=== PATIENT | male | born 1950 | race Caucasian/White ===

== ENCOUNTER → 2018-06-23 07:54 | Outpatient (CLI) | payer MEDICARE, SELFPAY ==
[2018-06-23 08:20] LABS: Bacteria Urine None Seen; RBC Urine None Seen (0-5/HPF); WBC Urine None Seen (0-5/HPF)
[2018-06-23 08:25] LABS: Hematocrit 39.8 % (41-53); Hemoglobin 13.6 g/dL (13.5-17.5); Mean Corpuscular HGB Conc 34.2 % (30-36); Mean Corpuscular Volume 87.7 fL (80-100); Platelet Count 205 X10^3/uL (150-400); Red Blood Cell Count 4.54 X10^6/uL (4.5-5.9); Red Cell Distribution Width 15.2 % (11.6-14.8); White Blood Cell Count 6.8 X10^3/uL (4.5-11.0)
[2018-06-23 09:07] LABS: Creatinine Urine Random 138.2 mg/dL
[2018-06-23 09:12] LABS: Alanine Aminotransferase 31 IU/L (21-72); Albumin 4.3 g/dL (3.5-5.0); Albumin Globulin Ratio 1.3 (1.0-2.8); Alkaline Phosphatase 77 U/L (38-126); Aspartate Aminotransferase 23 IU/L (17-59); BUN Creatinine Ratio 25.4 (6-22); Bilirubin Total 0.6 mg/dL (0.2-1.3); Blood Urea Nitrogen 33 mg/dL (9-20); Calcium 9.4 mg/dL (8.4-10.2); Carbon Dioxide 29 mmol/L (22-32); Chloride 103 mmol/L (98-107); Cholesterol 169 mg/dL (140-199); Estimated Glomerular Filt Rate 55.1 mL/min (>60); Globulin 3.2 g/dL (1.7-4.1); Glucose 108 mg/dL (80-110); HDL Cholesterol 45 mg/dL (40-60); HEMOLYSIS < 15 (0-50); LDL Cholesterol Calculated 99 mg/dL (<100); Potassium 4.8 mmol/L (3.4-5.1); Sodium 142 mmol/L (137-145); Total Protein 7.5 g/dL (6.3-8.2); Triglycerides 124 mg/dL (35-150); Uric Acid 10.9 mg/dL (3.5-8.5)
[2018-06-23 09:34] LABS: Prostate Specific Antigen 2.71 ng/mL (0.10-4.00)
[2018-06-23 10:16] LABS: Microalbumi Creatinin Ratio Ur 617.2 ug/mg CR (<30); Microalbumin Urine Random 85.3 mg/dL (0-1.6)
[2018-06-23 11:35] LABS: Appearance Urine UA CLEAR; Bilirubin Urine UA NEGATIVE (NEGATIVE); Color Urine UA YELLOW; Glucose Urine UA NEGATIVE (Negative); Ketones Urine UA NEGATIVE (NEGATIVE); Leukocyte Esterase Urine UA NEGATIVE (NEGATIVE); Nitrite Urine UA NEGATIVE (Negative); Occult Blood Urine UA NEGATIVE (Negative); Protein Urine UA 2+ (Negative)
[2018-06-23 11:46] LABS: Culture Indicated Urine Cult Not Indicated; Urine Comments Microscopic Normal
== END ==
PROVIDERS: PCP Student in an Organized Health Care Education/Training Program; Visit Provider Nurse Practitioner Family
DX: I10 Essential (primary) hypertension (principal); M10.9 Gout, unspecified; R97.20 Elevated prostate specific antigen [PSA]; Z68.33 Body mass index [BMI] 33.0-33.9, adult
CPT/HCPCS: 36415; 80053; 80061; 81001; 82043; 82570; 84153; 84550; 85027

== ENCOUNTER → 2018-10-27 12:41 | Outpatient (CLI) | payer MEDICARE, SELFPAY | PROVIDERS: PCP Student in an Organized Health Care Education/Training Program; Visit Provider Ophthalmology | DX: C83.11 Mantle cell lymphoma, lymph nodes of head, face, and neck (principal) ==

== ENCOUNTER → 2018-10-27 12:46 | Outpatient (CLI) | payer MEDICARE, SELFPAY ==
--- NOTE | 2018-10-27 | DI.MRI.S_ITS ---
PROCEDURE: MR HEAD/BRAIN WO/W CON INDICATIONS: Mantle cell lymphoma, lymph nodes of head, face, a TECHNIQUE: Noncontrast sagittal T1 spin echo, axial T2 fast spin echo, axial FLAIR, axial gradient echo, axial diffusion and ADC through the brain. Axial thin-slice axial T1 spin echo with fat saturation through the orbits. After the administration of contrast, axial and coronal thin-slice T1 spin echo with fat saturation through the orbits, axial T1 spin echo with fat saturation through the brain. COMPARISON: [facility], CT, CT CHEST ABD PEL W CON, 10/27/2018, 14:04. FINDINGS: Image quality: Excellent. Orbits: Globes demonstrate an unremarkable appearance. No significant abnormality of the lacrimal glands can be seen. The extraocular muscles are within normal limits. No masses or abnormal enhancement can be seen within the orbits. No significant paravertebral abnormalities are seen. CSF spaces: Ventricles are normal in size and shape. No extra-axial fluid collections. Basal cisterns are patent. Brain: No intracranial bleeds or mass effects. No abnormal intracranial enhancement. Mild to moderate age-appropriate brain parenchymal volume loss and chronic small vessel ischemic change can be seen. Diffusion weighted images show no acute ischemic insults. Mabry-white matter interface is intact. Brainstem is normal. Normal intravascular flow voids are present. Skull and face: Calvarial marrow signal is normal. Orbits appear normal. Sinuses: Sinuses and mastoids appear clear. IMPRESSION: No orbital abnormality can be seen. No masses or abnormal enhancement can be seen to suggest involvement of lymphoma of the orbits or intracranially. Dictated by: Diallo Lea M.D. on 10/27/2018 at 14:07 Approved by: Diallo Lea M.D. on 10/27/2018 at 14:10
--- NOTE | 2018-10-27 | DI.CT.S_ITS ---
PROCEDURE: CT CHEST ABD PEL W CON INDICATIONS: Mantle cell lymphoma, lymph nodes of head, face. TECHNIQUE: After the administration of oral and intravenous contrast, 5 mm thick sections acquired from the lung apices to the symphysis. 5 mm coronal and sagittal reformats were performed, with additional 7 mm coronal MIP reformats through the lungs. For radiation dose reduction, the following was used: automated exposure control, adjustment of mA and/or kV according to patient size. COMPARISON: CXR 08/17/2013. FINDINGS: Image quality: Excellent. CHEST: Lungs and pleura: No acute airspace opacities. Minimal atelectasis. A few pulmonary nodules measuring 3 mm or less, (7/139, 136). No pleural effusions or pneumothorax. Central and peripheral airways appear patent and normal in caliber. Mediastinum: Heart size is normal. Moderate coronary artery calcifications in the LAD. No pericardial effusion. Mildly prominent mediastinal and hilar lymph nodes. For example prevascular node measuring 1.7 x 1 cm, (2/19). Thoracic aorta and central pulmonary arteries are normal in size. Esophagus is normal in caliber. No hiatal hernia. Chest wall: Enlarged axillary lymph nodes. For example: -Superficial right axilla measuring 2.3 x 1.3 cm, (2/6). -Left axillary node measuring 2.7 x 1.9 cm, (2/8) There is a fatty hilum. Thyroid gland is unremarkable. ABDOMEN: Solid organs: Liver is normal in size and enhancement. Gallbladder is unremarkable. Biliary system is non dilated. Pancreas enhances normally. Spleen is is mildly enlarged measuring 3.3 cm, (3/42). No adrenal nodules. Kidneys demonstrate normal size and enhancement, without hydronephrosis. A few small simple appearing bilateral renal cysts. Peritoneum and bowel: Bowel loops demonstrate normal wall thickness and caliber. Normal appendix. No free fluid or air. Nodes and vessels: No enlarged retroperitoneal or mesenteric adenopathy. Prominent left inguinal node measuring 2.7 x 1.7 cm, (2/20). Small pelvic sidewall nodes. Miscellaneous: Surgical clips in the right groin. Asymmetric right abdominal wall musculature which may be related to prior procedure. PELVIS: Genitourinary: Bladder is unremarkable. Prostatomegaly. Miscellaneous: No inguinal hernias or adenopathy. Bones: No suspicious bony lesions. Moderate DDD of the thoracic and lumbar spine. A few vertebral bodies with mild anterior height loss. IMPRESSION: Enlarged bilateral axillary nodes. Prominent mediastinal nodes and left groin node. These findings are in keeping with the history of lymphoma. Comparison with prior imaging studies would be helpful to assess for change in disease status. Dictated by: Otf Michel M.D. on 10/27/2018 at 14:55 Approved by: Otf Michel M.D. on 10/27/2018 at 15:29
[2018-10-27 12:57] LABS: Bacteria Urine None Seen; RBC Urine None Seen (0-5/HPF); WBC Urine None Seen (0-5/HPF)
[2018-10-27 13:12] LABS: Appearance Urine UA SL CLOUDY; Bilirubin Urine UA NEGATIVE (NEGATIVE); Color Urine UA YELLOW; Glucose Urine UA NEGATIVE (Negative); Ketones Urine UA NEGATIVE (NEGATIVE); Leukocyte Esterase Urine UA NEGATIVE (NEGATIVE); Nitrite Urine UA NEGATIVE (Negative); Occult Blood Urine UA NEGATIVE (Negative); Protein Urine UA 3+ (Negative); Urobilinogen Urine UA 0.2 E.U./dL (0.2); pH Urine UA 5.5 (4.5-8.0)
[2018-10-27 13:21] LABS: BUN Creatinine Ratio 23.3 (6-22); Blood Urea Nitrogen 28 mg/dL (9-20); Calcium 9.4 mg/dL (8.4-10.2); Carbon Dioxide 30 mmol/L (22-32); Chloride 102 mmol/L (98-107); Estimated Glomerular Filt Rate > 60.0 mL/min (>60); Glucose 99 mg/dL (80-110); HEMOLYSIS < 15 (0-50); Potassium 4.6 mmol/L (3.4-5.1); Sodium 140 mmol/L (137-145)
[2018-10-27 14:13] LABS: Squamous Epithelial Cell Urine 1-5 /HPF (0-5/HPF)
== END ==
PROVIDERS: PCP Student in an Organized Health Care Education/Training Program; Visit Provider Nurse Practitioner Family
DX: C83.11 Mantle cell lymphoma, lymph nodes of head, face, and neck (principal); R80.9 Proteinuria, unspecified; I10 Essential (primary) hypertension; R79.89 Other specified abnormal findings of blood chemistry
CPT/HCPCS: 36415; 70553; 71260; 74177; 80048; 81001; A9579; Q9967

== ENCOUNTER 2019-01-31 06:28 | Day surgery (SDC) | payer MEDICARE, SELFPAY ==
[2019-01-31] VITALS (9 sets, daily range): BP systolic 149–170; BP diastolic 80–87; PULSE 69–958; RESP 10–16; TEMP 35.9–37.2; O2SAT 93–97; BMI 31.7
--- NOTE | 2019-01-31 | DI.RAD.S_ITS ---
PROCEDURE: XR CHEST 1V INDICATIONS: JEROME CATH TECHNIQUE: One view of the chest was acquired. COMPARISON: [facility], , CHEST 2 VIEW, 08/17/2013, 12:34. FINDINGS: Surgical changes and devices: Right chest port is present with the port positioned slightly more medial than expected. No acute kink is seen in the catheter. The tip projects at the upper SVC. Lungs and pleura: Lungs are clear. No pleural effusions or pneumothorax. Mediastinum: Mediastinal contours appear normal. Heart size is normal. Bones and chest wall: No suspicious bony lesions. Overlying soft tissues appear unremarkable. IMPRESSION: Right chest port as above. No pneumothorax. Dictated by: Trung Feldman M.D. on 01/31/2019 at 9:47 Approved by: Trung Feldman M.D. on 01/31/2019 at 9:49
--- NOTE | 2019-01-31 07:32 | PM.HP.1 ---
History of Present Illness History of Present Illness Date Patient Seen: 01/31/19 Time Patient Seen: 07:34 Chief complaint: [id number] Narrative: This is a 60-year-old male with mantle cell lymphoma referred from Oncology for a Port-A-Cath placement. His history began with a growth on his left lower eyelid which was resected and the pathology demonstrated mantle cell lymphoma. He has undergone CT as well as PET which demonstrates some axillary mediastinal lymphadenopathy. He reports feeling well today no acute pain fever unintentional weight loss. Medical history significant for hypertension hyperlipidemia. No prior heart attack stroke peripheral vascular disease diabetes pulmonary or renal insufficiency. 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 Brother No problems noted. Tobacco & Substance use: Smoking Status Former smoker alcohol intake current Meds Home Medications and Allergies Home Medications Medication Instructions Recorded Confirmed Type amlodipine 5 mg tablet 5 mg PO BID #60 tab 11/04/18 01/17/19 Rx amoxicillin 875 mg-potassium 1 tab PO BID #20 tab 01/17/19 01/17/19 Rx clavulanate 125 mg tablet lidocaine HCl 2 % mucosal solution 1 applictn MM TID PRN #15 ml 01/17/19 01/17/19 Rx Allergies Allergy/AdvReac Type Severity Reaction Status Date / Time indomethacin [INDOMETHACIN] Allergy Unknown GI UPSET Verified 01/17/19 10:10 Review of Systems Review of Systems Narrative: A complete review of systems is negative except as noted in the HPI Exam Narrative Exam Narrative: General-no acute distress, well nourished HEENT-moist mucous membranes, no scleral icterus Neck-supple, trachea midline Chest- non labored respirations, clear to auscultation bilaterally Cardiac-regular rate no peripheral edema Abdomen-soft, nontender, non distended Extremities-warm, well perfused Neurological-alert and oriented, no focal deficits Assessment & Plan Assessment and plan (1) Mantle cell lymphoma: Current visit: No Status: Acute Assessment & Plan narrative: This is a 60-year-old male with mantle cell lymphoma who presents today for Port-A-Cath placement. Plan is to place a right chest Port-A-Cath via a ultrasound-guided access of the internal jugular. We discussed the risks of the procedure including pneumothorax infection need for further procedure. His questions have been answered and he is in agreement with this plan.
[2019-01-31] MEDS: LACTATED RINGERS 1,000 ML 100 ML IV (07:53)
[2019-01-31] MEDS: CEFAZOLIN 2 GM/100 ML FROZ.PIGGY IV (08:02)
--- NOTE | 2019-01-31 08:24 | SUR.OPER ---
Supine on padded OR bed, head on gel donut, arms padded and tucked at sides, legs uncrossed, safety belt at thigh.
[2019-01-31] MEDS: HEPARIN 5,000 UNIT, SODIUM CHLORIDE 0.9% 50 ML IV (08:28)
[2019-01-31] MEDS: BUPIVACAINE 0.25% (PF) VIAL 30 ML INJ (08:28)
--- NOTE | 2019-01-31 09:03 | PM.OP.1 ---
Operative Date/Time/Diagnoses Date of procedure: 01/31/19 Time of procedure: 09:03 Pre-op diagnosis: mantle cell lymphoma Post-op diagnosis: same Procedure & Clinicians Procedure: Port A-Cath placement Same procedure as scheduled: Yes Indications: 68-year-old male mantle cell lymphoma presents for Port-A-Cath placement Surgeon: Chago Looney Click Yes if Unassisted: Yes Anesthesia Type: General Operative Notes Findings: Tip of the catheter lies within the SVC no evidence of pneumothorax Estimated Blood Loss (mL): 10 Procedure in detail: Patient was brought to the operating room placed supine on table. Bilateral lower extremity compressive devices were applied. General anesthesia was induced and he was intubated with an LMA. He was then prepped and draped in usual sterile fashion. Time-out was performed ensure the correct patient procedure necessary equipment within the operating room. He received 2 g of Ancef prior to incision. Under ultrasound guidance the right internal jugular vein was accessed under direct visualization. The guidewire was then threaded through the needle. Its placement was then confirmed using fluoroscopy. The dilator was then placed over the guidewire. The catheter was then inserted through the sheath. Placement was again confirmed with fluoroscopy. A subcutaneous pocket was made in the right chest wall. The tunneler device was used to move the catheter from the neck to the chest pocket. The port was attached after it was primed with heparined saline. The port was tested to ensure that it flushed easily and had good blood return. The port was then secured to the underlying fascia using interupted 0 Prolene suture. Hemostasis was achieved. The wound was irrigated with sterile saline. The subcutaneous tissues were reapproximated with the 3 0 Vicryl and then skin closed with 4-0 Monocryl. The skin was sealed with Dermabond. Patient tolerated procedure well. The sponge and instrument count at the end operation was correct. Patient emerged from general anesthesia was extubated and taken to the postoperative care unit in stable condition Complications: none Post-operative Condition: stable Disposition: same day surgery
--- NOTE | 2019-01-31 09:08 | SUR.PHASEI ---
Raffy ASTORGA. Denies pain/nausea.
--- NOTE | 2019-01-31 09:47 | SUR.PHASEI ---
Per Dr Feldman, chest X-ray negative for pneumothorax.
== END 2019-01-31 10:38 | disposition home or self-care (01) ==
PROVIDERS: PCP Nurse Practitioner Family; Visit Provider Surgery
PROC: (CPT 36561; principal; 2019-01-31 07:45)
DX: C83.10 Mantle cell lymphoma, unspecified site (principal); Z45.2 Encounter for adjustment and management of vascular access device; I10 Essential (primary) hypertension; E78.5 Hyperlipidemia, unspecified
CPT/HCPCS: 36561; 71045; 76000; C1788; J0690; J1644; J2704; J3010

== ENCOUNTER → 2019-02-06 15:06 | Outpatient (CLI) | payer MEDICARE, SELFPAY ==
--- NOTE | 2019-02-06 15:09 | DI.RAD.S_ITS ---
PROCEDURE: XR KNEE LT 3V INDICATIONS: pain, swelling, erythema, warmth, chills, r/o fx/joint effus TECHNIQUE: 3 views of the knee were acquired. COMPARISON: None. FINDINGS: Bones: No fractures or dislocations. No suspicious bony lesions. No osseous erosive changes or periosteal reaction identified. Patellar bone spurs are noted. Soft tissues: Large suprapatellar joint effusion. No suspicious soft tissue calcifications. Multiple surgical clips noted in the medial calf. IMPRESSION: Large, nonspecific, suprapatellar joint effusion. Septic joint cannot be excluded. Please correlate with clinical and laboratory data. Dictated by: Gemma Odell MD, PhD on 02/06/2019 at 15:53 Approved by: Gemma Odell MD, PhD on 02/06/2019 at 15:55
== END ==
PROVIDERS: Family Provider Nurse Practitioner Family; PCP Nurse Practitioner Family; Visit Provider Physician Assistant
DX: M71.10 Other infective bursitis, unspecified site (principal); M25.562 Pain in left knee; M25.462 Effusion, left knee; R68.83 Chills (without fever)
CPT/HCPCS: 73562

== ENCOUNTER → 2020-08-12 08:59 | Outpatient (CLI) | payer MEDICARE, MEDICAID, SELFPAY ==
--- NOTE | 2020-08-12 09:03 | DI.RAD.S_ITS ---
PROCEDURE: XR ANKLE LT MIN 3V INDICATIONS: CELLULITIS TECHNIQUE: 3 views of the ankle were acquired. COMPARISON: None. FINDINGS: Bones: ORIF of the distal fibula as well as medial malleolus are present. Healing fracture exostosis are present. Hardware is intact. Soft tissues: Soft tissue edema is noted overlying the distal aspect of the lower extremity. No soft tissue air. IMPRESSION: Soft tissue edema as above. This could represent infection or inflammation such as given history of cellulitis. Clinical correlation is recommended. No soft tissue air. Dictated by: Gillian Gallo M.D. on 08/12/2020 at 9:20 Approved by: Gillian Gallo M.D. on 08/12/2020 at 9:21
[2020-08-12 09:53] LABS: Add Manual Diff / Slide Review NO; Basophils Absolute Auto 100 /uL (0-100); Basophils Percent Auto 0.8 % (0-2); Eosinophils Absolute Auto 200 /uL (0-450); Eosinophils Percent Auto 3.5 % (2-4); Hematocrit 36.8 % (41-53); Hemoglobin 12.5 g/dL (13.5-17.5); Lymphocytes Absolute Auto 700 /uL (1100-4500); Lymphocytes Percent Auto 9.4 % (25-40); Mean Corpuscular HGB Conc 34.1 % (30-36); Mean Corpuscular Hemoglobin 31.4 PG (26-34); Mean Corpuscular Volume 92.3 fL (80-100); Monocytes Absolute Auto 700 /uL (0-900); Monocytes Percent Auto 9.8 % (3-14); Neutrophils Absolute Auto 5500 /uL (1500-7000); Neutrophils Percent Auto 76.5 % (50-75); Platelet Count 249 X10^3/uL (150-400); Red Blood Cell Count 3.99 X10^6/uL (4.5-5.9); White Blood Cell Count 7.1 X10^3/uL (4.5-11.0)
[2020-08-12 10:07] LABS: C-Reactive Protein Quant 3.6 mg/dL (<1.0)
[2020-08-12 10:21] LABS: Procalcitonin 0.12 ng/mL (<0.5)
[2020-08-12 10:28] LABS: Erythrocyte Sedimentation Rate 68 MM/HR (0-15)
== END ==
PROVIDERS: Family Provider Nurse Practitioner Family; PCP Nurse Practitioner Family; Referring Provider Physician Assistant; Visit Provider Physician Assistant
DX: L03.116 Cellulitis of left lower limb (principal)
CPT/HCPCS: 36415; 73610; 84145; 85025; 85651; 86140; 87040

== ENCOUNTER → 2020-08-15 08:42 | Outpatient (CLI) | payer MEDICARE, MEDICAID, SELFPAY | PROVIDERS: Family Provider Nurse Practitioner Family; PCP Nurse Practitioner Family; Referring Provider Nurse Practitioner Family; Visit Provider Family Medicine | DX: S91.002A Unspecified open wound, left ankle, initial encounter (principal); T84.7XXA Infection and inflammatory reaction due to other internal orthopedic prosthetic devices, implants and grafts, initial encounter; M86.672 Other chronic osteomyelitis, left ankle and foot; L03.116 Cellulitis of left lower limb; Z92.21 Personal history of antineoplastic chemotherapy; Z95.828 Presence of other vascular implants and grafts; Z86.14 Personal history of Methicillin resistant Staphylococcus aureus infection; Z87.891 Personal history of nicotine dependence; C83.10 Mantle cell lymphoma, unspecified site | CPT/HCPCS: 11042; 87070; 87075; 87205; 99204; 99213 ==

== ENCOUNTER → 2020-09-04 10:03 | Outpatient (CLI) | payer MEDICARE, MEDICAID, SELFPAY | PROVIDERS: Family Provider Nurse Practitioner Family; PCP Nurse Practitioner Family; Referring Provider Nurse Practitioner Family; Visit Provider Family Medicine | DX: S91.002A Unspecified open wound, left ankle, initial encounter (principal); T84.7XXA Infection and inflammatory reaction due to other internal orthopedic prosthetic devices, implants and grafts, initial encounter; M86.672 Other chronic osteomyelitis, left ankle and foot; R60.0 Localized edema; Z92.21 Personal history of antineoplastic chemotherapy; Z95.828 Presence of other vascular implants and grafts; Z86.14 Personal history of Methicillin resistant Staphylococcus aureus infection; C83.10 Mantle cell lymphoma, unspecified site | CPT/HCPCS: 11042; 99213 ==

== ENCOUNTER → 2020-09-18 10:10 | Outpatient (CLI) | payer MEDICARE, MEDICAID, SELFPAY | PROVIDERS: Family Provider Nurse Practitioner Family; PCP Nurse Practitioner Family; Referring Provider Nurse Practitioner Family; Visit Provider Family Medicine | DX: S91.002A Unspecified open wound, left ankle, initial encounter (principal); T84.7XXA Infection and inflammatory reaction due to other internal orthopedic prosthetic devices, implants and grafts, initial encounter; M86.672 Other chronic osteomyelitis, left ankle and foot; Z92.21 Personal history of antineoplastic chemotherapy; Z95.828 Presence of other vascular implants and grafts; Z86.14 Personal history of Methicillin resistant Staphylococcus aureus infection | CPT/HCPCS: 11042; 87070; 87075; 87077; 87147; 87186; 87205; 99213 ==

== ENCOUNTER → 2020-10-02 10:52 | Outpatient (CLI) | payer MEDICARE, MEDICAID, SELFPAY | PROVIDERS: Family Provider Nurse Practitioner Family; PCP Nurse Practitioner Family; Referring Provider Nurse Practitioner Family; Visit Provider Family Medicine | DX: S91.002A Unspecified open wound, left ankle, initial encounter (principal); T84.7XXA Infection and inflammatory reaction due to other internal orthopedic prosthetic devices, implants and grafts, initial encounter; M86.672 Other chronic osteomyelitis, left ankle and foot; Z92.21 Personal history of antineoplastic chemotherapy; Z95.828 Presence of other vascular implants and grafts; Z86.14 Personal history of Methicillin resistant Staphylococcus aureus infection; L08.9 Local infection of the skin and subcutaneous tissue, unspecified; B95.1 Streptococcus, group B, as the cause of diseases classified elsewhere; B95.7 Other staphylococcus as the cause of diseases classified elsewhere | CPT/HCPCS: 11042; 87070; 87075; 87077; 87147; 87186; 87205; 99214 ==

== ENCOUNTER → 2020-10-09 10:19 | Outpatient (CLI) | payer MEDICARE, MEDICAID, SELFPAY | PROVIDERS: Family Provider Nurse Practitioner Family; PCP Nurse Practitioner Family; Referring Provider Nurse Practitioner Family; Visit Provider Family Medicine | DX: S91.002A Unspecified open wound, left ankle, initial encounter (principal); T84.7XXA Infection and inflammatory reaction due to other internal orthopedic prosthetic devices, implants and grafts, initial encounter; M86.672 Other chronic osteomyelitis, left ankle and foot; Z92.21 Personal history of antineoplastic chemotherapy; R60.0 Localized edema; L08.9 Local infection of the skin and subcutaneous tissue, unspecified; Z95.828 Presence of other vascular implants and grafts; Z86.14 Personal history of Methicillin resistant Staphylococcus aureus infection; B95.1 Streptococcus, group B, as the cause of diseases classified elsewhere; B95.61 Methicillin susceptible Staphylococcus aureus infection as the cause of diseases classified elsewhere; Z87.891 Personal history of nicotine dependence | CPT/HCPCS: 11042; 99213; 99214 ==

== ENCOUNTER → 2020-10-17 10:15 | Outpatient (CLI) | payer MEDICARE, MEDICAID, SELFPAY | PROVIDERS: Family Provider Nurse Practitioner Family; PCP Nurse Practitioner Family; Referring Provider Nurse Practitioner Family; Visit Provider Family Medicine | DX: S91.002A Unspecified open wound, left ankle, initial encounter (principal); T84.7XXA Infection and inflammatory reaction due to other internal orthopedic prosthetic devices, implants and grafts, initial encounter; M86.672 Other chronic osteomyelitis, left ankle and foot; R60.0 Localized edema; L08.9 Local infection of the skin and subcutaneous tissue, unspecified; Z92.21 Personal history of antineoplastic chemotherapy; Z95.828 Presence of other vascular implants and grafts; Z86.14 Personal history of Methicillin resistant Staphylococcus aureus infection | CPT/HCPCS: 11042; 87070; 87075; 87205; 99212 ==

== ENCOUNTER → 2020-10-24 11:08 | Outpatient (CLI) | payer MEDICARE, MEDICAID, SELFPAY | PROVIDERS: Family Provider Nurse Practitioner Family; PCP Nurse Practitioner Family; Referring Provider Nurse Practitioner Family; Visit Provider Family Medicine | DX: S91.002A Unspecified open wound, left ankle, initial encounter (principal); T84.7XXA Infection and inflammatory reaction due to other internal orthopedic prosthetic devices, implants and grafts, initial encounter; M86.672 Other chronic osteomyelitis, left ankle and foot; Z92.21 Personal history of antineoplastic chemotherapy; Z95.828 Presence of other vascular implants and grafts; Z86.14 Personal history of Methicillin resistant Staphylococcus aureus infection; L08.9 Local infection of the skin and subcutaneous tissue, unspecified | CPT/HCPCS: 99213 ==

== ENCOUNTER → 2020-11-04 10:58 | Outpatient (CLI) | payer MEDICARE, MEDICAID, SELFPAY | PROVIDERS: Family Provider Nurse Practitioner Family; PCP Nurse Practitioner Family; Referring Provider Nurse Practitioner Family; Visit Provider Family Medicine | DX: S91.002A Unspecified open wound, left ankle, initial encounter (principal); T84.7XXA Infection and inflammatory reaction due to other internal orthopedic prosthetic devices, implants and grafts, initial encounter; M86.672 Other chronic osteomyelitis, left ankle and foot; Z92.21 Personal history of antineoplastic chemotherapy; Z95.828 Presence of other vascular implants and grafts; Z86.14 Personal history of Methicillin resistant Staphylococcus aureus infection; L08.9 Local infection of the skin and subcutaneous tissue, unspecified | CPT/HCPCS: 11042; 99213 ==

== ENCOUNTER → 2020-12-02 15:05 | Outpatient (CLI) | payer MEDICARE, MEDICAID, SELFPAY | PROVIDERS: Family Provider Nurse Practitioner Family; PCP Nurse Practitioner Family; Referring Provider Nurse Practitioner Family; Visit Provider Family Medicine | DX: T84.7XXA Infection and inflammatory reaction due to other internal orthopedic prosthetic devices, implants and grafts, initial encounter (principal); R60.0 Localized edema; B95.8 Unspecified staphylococcus as the cause of diseases classified elsewhere; B96.29 Other Escherichia coli [E. coli] as the cause of diseases classified elsewhere; D84.821 Immunodeficiency due to drugs; Z92.21 Personal history of antineoplastic chemotherapy | CPT/HCPCS: 99213; 99214 ==

== ENCOUNTER → 2020-12-16 11:20 | Outpatient (CLI) | payer MEDICARE, MEDICAID, SELFPAY | PROVIDERS: Family Provider Nurse Practitioner Family; PCP Nurse Practitioner Family; Referring Provider Nurse Practitioner Family; Visit Provider Family Medicine | DX: S91.002A Unspecified open wound, left ankle, initial encounter (principal); T84.7XXA Infection and inflammatory reaction due to other internal orthopedic prosthetic devices, implants and grafts, initial encounter; M86.672 Other chronic osteomyelitis, left ankle and foot; Z92.21 Personal history of antineoplastic chemotherapy; Z95.828 Presence of other vascular implants and grafts; Z86.14 Personal history of Methicillin resistant Staphylococcus aureus infection; L03.116 Cellulitis of left lower limb | CPT/HCPCS: 87070; 87075; 87186; 87205; 97597; 99213 ==

== ENCOUNTER → 2021-01-01 14:47 | Outpatient (CLI) | payer MEDICARE, MEDICAID, SELFPAY | PROVIDERS: Family Provider Nurse Practitioner Family; PCP Nurse Practitioner Family; Referring Provider Nurse Practitioner Family; Visit Provider Family Medicine | DX: I89.0 Lymphedema, not elsewhere classified (principal); L97.321 Non-pressure chronic ulcer of left ankle limited to breakdown of skin; B95.62 Methicillin resistant Staphylococcus aureus infection as the cause of diseases classified elsewhere; Z92.21 Personal history of antineoplastic chemotherapy; Z95.828 Presence of other vascular implants and grafts | CPT/HCPCS: 87070; 87077; 87147; 87186; 87205; 97597; 97598; 99214 ==

== ENCOUNTER → 2021-01-03 11:30 | Outpatient (CLI) | payer MEDICARE, MEDICAID, SELFPAY | PROVIDERS: Family Provider Nurse Practitioner Family; PCP Nurse Practitioner Family; Referring Provider Nurse Practitioner Family; Visit Provider Nurse Practitioner Family | DX: I89.0 Lymphedema, not elsewhere classified (principal); L97.321 Non-pressure chronic ulcer of left ankle limited to breakdown of skin | CPT/HCPCS: 29581 ==

== ENCOUNTER → 2021-01-08 09:16 | Outpatient (CLI) | payer MEDICARE, MEDICAID, SELFPAY | PROVIDERS: Family Provider Nurse Practitioner Family; PCP Nurse Practitioner Family; Referring Provider Nurse Practitioner Family; Visit Provider Family Medicine | DX: I89.0 Lymphedema, not elsewhere classified (principal); L97.321 Non-pressure chronic ulcer of left ankle limited to breakdown of skin; Z92.21 Personal history of antineoplastic chemotherapy; Z95.828 Presence of other vascular implants and grafts; B95.61 Methicillin susceptible Staphylococcus aureus infection as the cause of diseases classified elsewhere | CPT/HCPCS: 11042; 11045; 87070; 87205; 99213; 99214 ==

== ENCOUNTER → 2021-01-14 14:51 | Outpatient (CLI) | payer MEDICARE, MEDICAID, SELFPAY | PROVIDERS: Family Provider Nurse Practitioner Family; PCP Nurse Practitioner Family; Referring Provider Nurse Practitioner Family; Visit Provider Family Medicine | DX: I89.0 Lymphedema, not elsewhere classified (principal); L97.321 Non-pressure chronic ulcer of left ankle limited to breakdown of skin; Z92.21 Personal history of antineoplastic chemotherapy; Z95.828 Presence of other vascular implants and grafts | CPT/HCPCS: 97597; 97598; 99213 ==

== ENCOUNTER → 2021-01-21 13:36 | Outpatient (CLI) | payer MEDICARE, MEDICAID, SELFPAY | PROVIDERS: Family Provider Nurse Practitioner Family; PCP Nurse Practitioner Family; Referring Provider Nurse Practitioner Family; Visit Provider Family Medicine | DX: I89.0 Lymphedema, not elsewhere classified (principal); L97.321 Non-pressure chronic ulcer of left ankle limited to breakdown of skin; Z92.21 Personal history of antineoplastic chemotherapy; Z95.828 Presence of other vascular implants and grafts; L23.1 Allergic contact dermatitis due to adhesives | CPT/HCPCS: 97597; 99214 ==

== ENCOUNTER → 2021-01-28 09:48 | Outpatient (CLI) | payer MEDICARE, MEDICAID, SELFPAY | PROVIDERS: Family Provider Nurse Practitioner Family; PCP Nurse Practitioner Family; Referring Provider Nurse Practitioner Family; Visit Provider Family Medicine | DX: I89.0 Lymphedema, not elsewhere classified (principal); Z92.21 Personal history of antineoplastic chemotherapy; Z95.828 Presence of other vascular implants and grafts; L23.1 Allergic contact dermatitis due to adhesives | CPT/HCPCS: 99212 ==